=== PATIENT | female | born 1950 | race Caucasian/White ===

== ENCOUNTER → 2016-12-10 | Outpatient (CLI) | payer OTHER, BC ==
--- NOTE | 2016-12-10 11:07 | DI ---
MRI LUMBAR SPINE SCAN WITHOUT IV CONTRAST, 12/10/2016 9:47 AM: Clinical History: Low back pain. Previous Exam: None. Technique: Sagittal and axial T2 weighted; sagittal T1 weighted and T2 STIR; and axial PD. The vertebral bodies are of normal height and size. 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 There is disc space narr owing at L1-2 through L3-4 and all lumbar disc spaces show desiccation change. The cord terminates at T12 and the conus medullaris is normal. The T10-11 through T12-L1 disc spaces are normal. L1-2 has a circumferentially bulging but not herniated disc without canal or neural foraminal stenosis. L2-3 escudero s a circumferentially bulging but not herniated disc without canal or left neural foraminal stenosis. There is right neural foraminal stenosis but the nerve root still exits appropriately. Degenerative arthritic changes are present in both apophyseal joints. L3-4 has a circumferentially bulging but not herniated disc with hypertrophic changes of the apophyseal joints and ligamentum flavum producing a cross-sectional area of the canal that is at the lowest limits of normal. There is no neural foramina l stenosis. L4-5 also has a circumferentially bulging but not herniated disc without canal or neural foraminal stenosis. There is degenerative arthritic change of both apophyseal joints. The L5-S1 disc space is normal. Readin. The disc spaces L1-2 through L4-5 have bulging but not herniated discs without canal or significa nt neural foraminal stenosis. Degenerative arthritic changes are present in the apophyseal joints bet ween L2-3 and L4-5. 2. There is edema at the respective endplates at the L2-3 disc space level suggesting there may be m otion at this level. Upright lateral flexion and extension views of the lumbar spine are recommended to see if motion can be demonstrated at the L2-3 disc space. 3. The T10-11 through T12-L1 and the L5-S1 disc spaces are normal.
== END ==
LOC: MRI 09:38
PROVIDERS: ATTEND Family Medicine
DX: M54.16 Radiculopathy, lumbar region (principal); M47.816 Spondylosis without myelopathy or radiculopathy, lumbar region
CPT/HCPCS: 72148